=== PATIENT | male | born 2000 | race Caucasian/White ===

== ENCOUNTER 2025-02-02 20:25 | Emergency (ER) | payer OTHER ==
[~2025-02-02] VITALS: Ht 182.9 cm; Wt 83.9 kg
[2025-02-02] MEDS ORDERED: TETANUS/DIPHTHERIA TOX ADULT 0.5 ML SYR IM ONE (21:00)
[2025-02-02] MEDS ORDERED: CEPHALEXIN500 MG PO (21:39)
[2025-02-02] MEDS ORDERED: KETOROLAC TROME10 MG PO (21:39)
[2025-02-02 21:47] VITALS: PULSE 81; RESP 16; TEMP 98.8; O2SAT 97
== END 2025-02-02 21:44 | disposition home or self-care (01) ==
LOC: ER 20:31
DX: S02.66XA Fracture of symphysis of mandible, initial encounter for closed fracture (principal); W21.07XA Struck by softball, initial encounter; Y92.89 Other specified places as the place of occurrence of the external cause
CPT/HCPCS: 70486; 99283